=== PATIENT | female | born 1930 | race Caucasian/White ===

== ENCOUNTER → 2017-04-07 | Outpatient (CLI) | payer MEDICARE ==
[~2017-04-07] MED LIST: BYSTOLIC5 MG PO; CLONAZEPAM 1MG T1 MG PO; DILANTIN 100MG100 MG PO; KLONOPIN1 MG PO; MEDROL 4MG. DOSE4 MG PO; NEXIUM40 MG PO; NORPRAMIN PO; OMEPRAZOLE40 MG PO; ULTRAM 50 MG TA50 MG PO
--- NOTE | 2017-04-07 10:22 | CARDIOVASCULAR REPORT ---
"Cerebrovascular Exam Indications: Follow-up carotid 433.10. IMPRESSIONS 1. The bilateral vertebral arteries are patent with normal antegrade flow. 2. Study suggests 20-49% stenosis involving the right internal carotid artery and the left internal carotid artery. 3. Difficult exam. Carotid duplex study. Complete study and Doppler flow study including spectral analysis, color and rosales scale imaging. Height: Height: 157.5cm. Height: 62in. Weight: Weight: 78kg. Weight: 171.6lb. Body mass index: BMI: 31.5kg/m^2. Body surface area: BSA: 1.88m^2. Location: Vascular laboratory. Patient status: Outpatient. Tables: Arterial flow: + +--------+--------+ |Location |V sys |V ed | + +--------+--------+ |Right CCA - proximal|79.4cm/s|14.3cm/s| + +--------+--------+ |Right CCA - distal |69.5cm/s|9.9cm/s | + +--------+--------+ |Right ECA |77.2cm/s|--------| + +--------+--------+ |Right ICA - proximal|68.3cm/s|13.5cm/s| + +--------+--------+ |Right ICA - mid |64.3cm/s|15.9cm/s| + +--------+--------+ |Right ICA - distal |116cm/s |22.6cm/s| + +--------+--------+ |Right vertebral |72.2cm/s|--------| + +--------+--------+ |Left CCA - proximal |110cm/s |12.7cm/s| + +--------+--------+ |Left CCA - distal |65.1cm/s|9.9cm/s | + +--------+--------+ |Left ECA |108cm/s |--------| + +--------+--------+ |Left ICA - proximal |93.6cm/s|20.3cm/s| + +--------+--------+ |Left ICA - mid |104cm/s |18.2cm/s| + +--------+--------+ |Left ICA - distal |82.9cm/s|22.6cm/s| + +--------+--------+ |Left vertebral |59cm/s |--------| + +--------+--------+ Velocity ratios: + + + + + + | |Right, V sys|Right, V ed|Left, V sys|Left, V ed| + + + + + + |Max ICA/dist CCA|1.67 |2.28 |1.6 |2.28 | + + + + + + (Report amended ) Electronically signed by: Nolberto Cobb [id number]"
--- NOTE | 2017-04-07 19:34 | RADIOLOGY REPORT PS360 ---
PROCEDURE: 2-D M-mode and color Doppler study INDICATIONS FOR THE TEST: Chest pain + COPD Heart Murmur Tobacco Smoking Palpitations Fatigue+ Syncope Edema Hypertension+Diabetes Mellitus Rheumatic Fever SOB+MONTERO Obesity Hyperlipidemia Family History HD Additional History PATIENT INFORMATION HEIGHT: 63 WEIGHT:172 GENDER: Female B/P:130/62 2-D/M-MODE INTERPRETATION: 2-D MEASUREMENTS OBSERVED VALUES IN CMS Right Ventricular Dimension (RVDd) 1.7 Interventricular Septum (Thickness)(IVsd) 1.4 Left Ventricular Internal Dimensions(LVIDd) 4.6 Left Ventricular Posterior Wall (Thickness)(LVPWd) 0.8 Aortic Root 3.2 Aortic Cusp Separation 1.8 Left Atrial Dimensions (LAD) 4.0 2D 1. Left atrium is mildly enlarged, left ventricle is normal size, there is mild concentric left ventricular hypertrophy, visually estimated ejection fraction of 55% with no obvious regional wall motion abnormality. 2. The right atrium and right ventricle are normal size and contractility. 3. The aortic valve is minimally fibrosed. 4. The mitral and tricuspid valve is minimally thickened. 5. The pulmonic valve is poorly visualized. 6. No significant pericardial effusion noted. DOPPLER INTERROGATION: Doppler interrogation of the aortic, mitral and tricuspid valvular presence of mild mitral and tricuspid regurgitation, calculated right ventricular systolic pressure of 34 mmHg . Grade 1 diastolic dysfunction seen with tissue Doppler evidence of raised left atrial pressure. CONCLUSION: 1. Mildly enlarged left atrium, normal left ventricular size, mild concentric left ventricular hypertrophy, visually estimated ejection fraction 55% with no obvious regional wall motion abnormality, grade 1 diastolic dysfunction seen with tissue Doppler evidence of raised left atrial pressure. 2. Mild mitral and tricuspid regurgitation. Calculated right ventricular systolic pressure of 34 mmHg. 3. No significant pericardial effusion noted
--- NOTE | 2017-04-09 11:25 | RADIOLOGY REPORT PS360 ---
CARDIOLITE SPECT MYOCARDIAL PERFUSION SCAN, REST AND STRESS: EXERCISE STRESS [facility] REVIEW QGS EF AND WALL MOTION EVALUATION: QPS - PERFUSION EVALUATION HISTORY: Chest pain, SOB, Fatigue, Abnormal EKG, HTN, Family Hx DOSE: 10.09 mCi technetium 99m mibi intravenously at rest followed by 31.8 mCi technetium 99m mibi following the intravenous ministration of 0.4 mg of Lexiscan. Resting blood pressure is 130/62. Stress blood pressure 117/56. FINDINGS: Ejection fraction is calculated to be 82%. Stress images reveal moderately decreased activity in the lateral wall while rest images reveal mildly decreased activity in the lateral wall. 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 Normal ejection fraction normal wall motion. Moderate risk stress
--- NOTE | 2017-04-09 11:25 | RADIOLOGY REPORT PS360 ---
CARDIOLITE SPECT MYOCARDIAL PERFUSION SCAN, REST AND STRESS: EXERCISE STRESS [facility] REVIEW QGS EF AND WALL MOTION EVALUATION: QPS - PERFUSION EVALUATION HISTORY: Chest pain, SOB, Fatigue, Abnormal EKG, HTN, Family Hx DOSE: 10.09 mCi technetium 99m mibi intravenously at rest followed by 31.8 mCi technetium 99m mibi following the intravenous ministration of 0.4 mg of Lexiscan. Resting blood pressure is 130/62. Stress blood pressure 117/56. FINDINGS: Ejection fraction is calculated to be 82%. Stress images reveal moderately decreased activity in the lateral wall while rest images reveal mildly decreased activity in the lateral wall. 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 Normal ejection fraction normal wall motion. Moderate risk stress
== END ==
LOC: RAD 07:09
DX: I10 Essential (primary) hypertension (principal); I20.8 Other forms of angina pectoris; R06.00 Dyspnea, unspecified; R53.83 Other fatigue; R94.31 Abnormal electrocardiogram [ECG] [EKG]; R06.83 Snoring; K44.9 Diaphragmatic hernia without obstruction or gangrene; R09.89 Other specified symptoms and signs involving the circulatory and respiratory systems
CPT/HCPCS: A9502; J2785

== ENCOUNTER 2017-04-14 07:13 | Day surgery (SDC) | payer MEDICARE ==
[2017-04-14 07:42] LABS: HEMOGLOBIN 12.6 g/dL (12.2-16.2); LYMPH # 2.6 K/mm3 (0.7-4.5); LYMPH % 26.2 % (10-50.0)
[2017-04-14 07:54] LABS: BUN 16 mg/dL (7-18)
[2017-04-14 07:59] LABS: GFR (ESTIMATED) 68 ML/MIN (59-)
--- NOTE | 2017-04-14 09:44 | RADIOLOGY REPORT PS360 ---
CARDIAC CATHETERIZATION DATE OF CATHETERIZATION: PROCEDURES: 1. Left heart catheterization 2. Left ventriculogram 3. Selective coronary angiogram INDICATION FOR TEST: 1. Abnormal Myoview 2. Angina pectoris 3. Risk factors for coronary artery disease Informed consent was obtained prior to the procedure. COMPLICATIONS: None ESTIMATED BLOOD LOSS: Less than 10 ml. TECHNIQUE: One percent lidocaine used to anesthetize the right anterior aspect of the wrist. The right radial artery was accessed via the Seldinger technique. A 6 Iceland[place] sheath was placed in the right radial artery. 2.5 mg of verapamil, 800 mcg of nitroglycerin and 5000 U Heparin were given through the arterial sheath. The trap catheter was also used to perform left heart catheterization and left ventriculography. At the end of the procedure the patient was transferred to the post-op holding area in stable condition for arterial sheath removal. ANGIOGRAPHIC RESULTS: 1. The left main artery normal 2. The left anterior descending artery normal 3. The circumflex artery dominant normal 4. The right coronary artery normal 5. The HOANG ventriculogram reveals normal 65% 6. The left ventricular end-diastolic pressure 10 mmHg IMPRESSION: 1. Normal coronary arteries. 2. Normal ejection fraction 3. Normal left ventricular end-diastolic pressure PLAN: 1. Medical management 2. Evaluation of noncardiac chest pain
[2017-04-14 12:37] VITALS: BP 139/66
== END 2017-04-14 12:40 | disposition home or self-care (01) ==
LOC: CATHLAB 07:13
PROVIDERS: Internal Medicine
PROC: B2111ZZ Fluoroscopy of Multiple Coronary Arteries using Low Osmolar Contrast (ICD-10-PCS; 2017-04-14)
PROC: B2151ZZ Fluoroscopy of Left Heart using Low Osmolar Contrast (ICD-10-PCS; 2017-04-14)
PROC: 4A023N7 Measurement of Cardiac Sampling and Pressure, Left Heart, Percutaneous Approach (ICD-10-PCS; principal; 2017-04-14 09:45)
DX: I50.33 Acute on chronic diastolic (congestive) heart failure (principal); I20.8 Other forms of angina pectoris; I27.21 Secondary pulmonary arterial hypertension; R07.9 Chest pain, unspecified; R94.39 Abnormal result of other cardiovascular function study; I10 Essential (primary) hypertension; R06.09 Other forms of dyspnea
CPT/HCPCS: C1725; C1769; J1644; Q9967

== ENCOUNTER → 2017-04-25 | Outpatient (CLI) | payer MEDICARE ==
--- NOTE | 2017-04-27 08:54 | RADIOLOGY REPORT PS360 ---
CT CHEST W/O CONTRAST COMPARISON: PA and lateral chest 03/29/2014 HISTORY: Pulmonary atelectasis TECHNIQUE: Multiaxial scans obtained from the thoracic inlet the hemidiaphragms are performed without IV contrast. Sagittal and coronal reformats were evaluated as well. FINDINGS: The lung tomlinson are well expanded. The screw mistiming is unremarkable. There is borderline Deidra megaly with coronary artery calcification. The vascularity is normal no evidence of failure. There is minimal discoid atelectasis in both lower lobes. There is no pleural fluid. There is a moderate-sized hiatal hernia. There are stable mild nonrecent compression fractures of T9 and T11. IMPRESSION: Minimal bilateral basilar atelectasis, moderate sized hiatal hernia is noted.
== END ==
LOC: RAD 15:03
DX: J98.11 Atelectasis (principal)

== ENCOUNTER → 2017-05-09 | Outpatient (CLI) | payer MEDICARE | LOC: RT 13:33 | DX: R06.09 Other forms of dyspnea (principal); J98.11 Atelectasis ==